=== PATIENT | female | born 1980 | race Caucasian/White ===

== ENCOUNTER → 2016-08-11 | Outpatient (CLI) | payer OTHER ==
[~2016-08-11] MED LIST: ANAPROX275 MG PO; ATARAX,VISTARIL10 MG; ATARAX25 MG PO; BIRTH CONTROL1 EAC1 PO; CIPRO500 MG PO; CIPRODEX 0.3%-7.5 M1 OPH; CLEOCIN HCL150 MG PO; ELIMITE5% TP; Medrol Dosepak4 MG; NAPROSYN500 MG PO; NEXIUM20 M1 PO; PREDNICOT20 MG PO; PROTONIX40 MG PO; ZANTAC 150150 MG PO; ZANTAC150 MG PO; ZITHROMAX Z PA250 MG PO
== END | disposition home or self-care (01) ==
LOC: US 08:30
DX: K76.89 Other specified diseases of liver (principal); R94.5 Abnormal results of liver function studies

== ENCOUNTER → 2018-03-27 | Outpatient (CLI) | payer OTHER | END | disposition home or self-care (01) | LOC: CT 03-23 14:00 | DX: R10.30 Lower abdominal pain, unspecified (principal); Z90.710 Acquired absence of both cervix and uterus ==

== ENCOUNTER 2018-11-14 13:09 | Emergency (ER) | payer OTHER ==
[~2018-11-14] VITALS: Ht 162.5 cm; Wt 77.1 kg
[2018-11-14 13:10] VITALS: BP 113/60
[2018-11-14] MEDS ORDERED: SEPTDS PO (15:41)
== END 2018-11-14 15:45 ==
LOC: ED 13:09
DX: S60.031A Contusion of right middle finger without damage to nail, initial encounter (principal); L03.011 Cellulitis of right finger; Z88.6 Allergy status to analgesic agent; Z79.899 Other long term (current) drug therapy; Z90.710 Acquired absence of both cervix and uterus; W22.8XXA Striking against or struck by other objects, initial encounter; Y93.89 Activity, other specified; Y92.59 Other trade areas as the place of occurrence of the external cause; Y99.0 Civilian activity done for income or pay

== ENCOUNTER 2021-08-07 13:33 | Emergency (ER) | payer OTHER ==
[~2021-08-07 13:33] MED LIST changes: +SEPTDS PO
[2021-08-07 13:38] VITALS: BP 110/70
[2021-08-07] MEDS ORDERED: CEFDINIR300 MG PO (13:47)
== END 2021-08-07 13:57 | disposition home or self-care (01) ==
LOC: ED 13:33
DX: H65.02 Acute serous otitis media, left ear (principal); Z88.6 Allergy status to analgesic agent; Z79.899 Other long term (current) drug therapy; Z98.890 Other specified postprocedural states; Z98.51 Tubal ligation status; Z90.710 Acquired absence of both cervix and uterus

== ENCOUNTER 2022-01-14 23:05 | Emergency (ER) | payer OTHER ==
[~2022-01-14] VITALS: Ht 165.1 cm; Wt 74.8 kg
[~2022-01-14 23:05] MED LIST changes: +CEFDINIR300 MG PO
[2022-01-14 23:37] LABS: BASO % 0.4 % (0.0-1.0); EOS % 0.2 % (1.0-4.0); HEMATOCRIT 41.7 % (37.0-47.0); LYMPH # 1.1 10*3/uL (1.3-4.4); LYMPH % 9.8 % (27.0-41.0); MEAN CELL VOLUME 93.3 fl (81.0-99.0); MEAN CORPUSCULAR HGB 30.6 pg (27.0-31.0); MEAN CORPUSCULAR HGB CONC 32.9 g/dl (33.0-37.0); MEAN PLATELET VOLUME 10.9 fl (9.6-12.3); MONO # 0.3 10*3/uL (0.1-1.0); NEUT # 9.3 10*3/uL (2.3-7.9); NEUT % 86.2 % (47.0-73.0); PLATELET COUNT AUTOMATED 188 10*3/uL (130-400); RED BLOOD COUNT 4.47 10*6/uL (4.10-5.10); RED CELL DISTRI WIDTH 12.9 % (0-14.5); WHITE BLOOD COUNT 10.8 10*3/uL (4.8-10.8)
[2022-01-14 23:56] LABS: ALKALINE PHOSPHATASE 34 U/L (45-117); BUN 12 mg/dl (7-24); CHLORIDE 112 mmol/L (98-107); CREATININE 0.74 mg/dL (0.55-1.02); LIPASE 126 U/L (73-393); POTASSIUM 3.3 mmol/L (3.5-5.1); SGOT/AST 9 IU/L (3-35); SGPT/ALT 14 U/L (12-78); SODIUM 143 mmol/L (136-145); TOTAL PROTEIN 6.2 gm/dL (6.4-8.2)
[2022-01-15 02:09] LABS: BILIRUBIN Negative (Negative); BLOOD Negative (Negative); CLARITY Clear (Clear); COLOR Yellow (Yellow); GLUCOSE Negative (Negative); KETONE 1+ (Negative); NITRITE Negative (Negative); SPECIFIC GRAVITY 1.025 (1.001-1.030)
[2022-01-15 02:20] LABS: LEUKO ESTERASE Trace (Negative)
[2022-01-15 02:21] LABS: BACTERIA 1+; MUCOUS 2+
== END 2022-01-15 03:14 | disposition home or self-care (01) ==
LOC: ED 23:05
PROVIDERS: Emergency Medicine
DX: R11.10 Vomiting, unspecified (principal); R10.12 Left upper quadrant pain; F17.200 Nicotine dependence, unspecified, uncomplicated; Z98.51 Tubal ligation status; Z98.890 Other specified postprocedural states; Z90.710 Acquired absence of both cervix and uterus